=== PATIENT | female | born 1935 | race African-American/Black ===

== ENCOUNTER 2019-04-07 15:43 | Emergency (ER) | payer MEDICARE ==
[~2019-04-07] VITALS: Ht 160 cm; Wt 68.0 kg
--- NOTE | 2019-04-07 16:07 | Emergency Room Report ---
History of Present Illness General Chief Complaint: Generalized Weakness Source: EMS Present Illness HPI Presents with a history of advanced dementia and refusing to eat. She also refused dialysis today. She gets dialysis Wednesdays and Fridays. She is unable to give a history. She cannot even tell me where she was born. She is able to tell me what her name is. She denies pain at this time. Had dialysis Friday. Has had A fib in past. Allergies: Coded Allergies: No Known Allergies (Unverified , 04/07/19) Patient History Limited by: medical condition Past Medical History: see triage record Past Surgical History: other - fistula L forearm Social History Narrative at home with family Reviewed Nursing Documentation: PMH: Agreed; PSxH: Agreed Nursing Documentation-PMH Past Medical History: No History, Except For Hx Dialysis: Yes - M-W-F Hx Neurological Problems: Yes - dementia Review of Systems All Other Systems: limited Physical Exam Vital Signs Date Time Temp Pulse Resp B/P (MAP) Pulse Ox O2 Delivery O2 Flow Rate FiO2 04/07/19 15:43 98.1 86 16 142/70 (94) 97 Room Air Sp02 EP Interpretation: reviewed, normal General Appearance: thin, other - frail, Chronically Ill Eyes: bilateral eye other - arcus ENT: moist mucus membranes Neck: supple Respiratory: lungs clear, normal breath sounds Cardiovascular #1: irregularly irregular, edema - trace Cardiovascular #2: 2+ radial (L) - thrill Gastrointestinal: normal inspection, normal bowel sounds, non tender, soft Genitourinary: no CVA tenderness Musculoskeletal: back normal, digits/nails normal, no calf tenderness Neurologic: alert, motor strength/tone normal, DTRs symmetric, sensory intact, oriented - X1 Psychiatric: depressed affect Skin: other - sallow Medical Decision Making Diagnostic Impression: Primary Impression: Failure to thrive Qualified Codes: R62.7 - Adult failure to thrive Additional Impressions: ESRD (end stage renal disease) on dialysis Elevated troponin ER Course Patient presents with refusal to eat and refusing dialysis. Differential includes failure to thrive, acute myocardial infarction, occult infection, electrolyte abnormality with increased potassium due to lack of dialysis amongst others. Patient will be evaluated with EKG, chest x-ray and labs. The patient is placed on a quality assurance monitor body. Complaining of stomach pain. Mylanta and Pepcid ordered. EKG with atrial fibrillation and PVC. CXR with aortic calcifications and slight atelectasis L. CMP with CRF, potassium normal. + troponin - aspirin ordered. Elevated BNP. No need for acute dialysis but need assessment of refusal of eating and dialysis. Discussed with Dr. Whitman at [facility]. Stable for transfer. Laboratory Tests Test 04/07/19 16:10 White Blood Count 13.9 K/UL (4.8-10.8) H Red Blood Count 5.17 M/UL (4.20-5.40) Hemoglobin 10.1 G/DL (12.0-16.0) L Hematocrit 34.5 % (37.0-47.0) L Mean Corpuscular Volume 67 FL (80-99) L Mean Corpuscular Hemoglobin 19.5 PG (27.0-31.0) L Mean Corpuscular Hemoglobin Concent 29.3 G/DL (32.0-36.0) L Red Cell Distribution Width 21.8 % (11.6-14.8) H Platelet Count 184 K/UL (150-450) Mean Platelet Volume 5.9 FL (6.5-10.1) L Neutrophils (%) (Auto) % (45.0-75.0) Lymphocytes (%) (Auto) % (20.0-45.0) Monocytes (%) (Auto) % (1.0-10.0) Eosinophils (%) (Auto) % (0.0-3.0) Basophils (%) (Auto) % (0.0-2.0) Differential Total Cells Counted 100 Neutrophils % (Manual) 75 % (45-75) Lymphocytes % (Manual) 16 % (20-45) L Monocytes % (Manual) 9 % (1-10) Eosinophils % (Manual) 0 % (0-3) Basophils % (Manual) 0 % (0-2) Band Neutrophils 0 % (0-8) Nucleated Red Blood Cells 1 /100 WBC Platelet Estimate Adequate Platelet Morphology Normal Polychromasia 2+ Hypochromasia 3+ Anisocytosis 3+ Microcytosis 3+ Target Cells 1+ Tear Drop Cells 1+ Prothrombin Time 12.4 SEC (9.30-11.50) H Prothrombin Time INR 1.2 (0.9-1.1) H PTT 28 SEC (23-33) Sodium Level 136 MMOL/L (136-145) Potassium Level 3.9 MMOL/L (3.5-5.1) Chloride Level 99 MMOL/L (98-107) Carbon Dioxide Level 26 MMOL/L (21-32) Anion Gap 11 mmol/L (5-15) Blood Urea Nitrogen 35 mg/dL (7-18) H Creatinine 6.6 MG/DL (0.55-1.30) H Estimate Glomerular Filtration Rate mL/min (>60) Glucose Level 105 MG/DL (74-106) Uric Acid 9.3 MG/DL (2.6-7.2) H Calcium Level 9.3 MG/DL (8.5-10.1) Magnesium Level 2.2 MG/DL (1.8-2.4) Total Bilirubin 1.8 MG/DL (0.2-1.0) H Direct Bilirubin 0.5 MG/DL (0.0-0.3) H Aspartate Amino Transferase (AST) 16 U/L (15-37) Alanine Aminotransferase (ALT) 8 U/L (12-78) L Alkaline Phosphatase 94 U/L (46-116) Total Creatine Kinase 19 U/L (26-308) L Troponin I 0.079 ng/mL (0.000-0.056) Pro-B-Type Natriuretic Peptide 65603 pg/mL (0-125) H Total Protein 7.2 G/DL (6.4-8.2) Albumin 2.8 G/DL (3.4-5.0) L Globulin 4.4 g/dL Albumin/Globulin Ratio 0.6 (1.0-2.7) L Thyroid Stimulating Hormone (TSH) 0.320 uiU/mL (0.358-3.740) Digoxin Level < 0.2 NG/ML (0.9-2.0) L EKG Diagnostic Results Rate: normal Rhythm: other - a fib ST Segments: no acute changes Rhythm Strip Diag. Results EP Interpretation: yes Rhythm: no PVC's, no ectopy, other - a fib Chest X-Ray Diagnostic Results Chest X-Ray Diagnostic Results : Chest X-Ray Ordered: Yes # of Views/Limited/Complete: 1 View Indication: Other EP Interpretation: Yes Interpretation: no pneumothorax, other - atelectasis L and possible effusion , inc cor Impression: Other Electronically Signed by: Electronically signed by Kirit Saha MD Last Vital Signs Date Time Temp Pulse Resp B/P (MAP) Pulse Ox O2 Delivery O2 Flow Rate FiO2 04/07/19 18:09 98.6 88 18 102/66 100 Room Air Status: improved Disposition: XFER SHT-TRM HOSP Condition: Serious Scripts Unable to Obtain Active Prescriptions or Reported Meds Kirit Saha MD Apr 07, 2019 16:07
[2019-04-07 16:23] VITALS: BP 134/70
[2019-04-07 16:30] LABS: HEMATOCRIT 34.5 % (37.0-47.0); HEMOGLOBIN 10.1 G/DL (12.0-16.0); MEAN CORPUSCULAR VOLUME 67 FL (80-99); PLATELET COUNT 184 K/UL (150-450); RED BLOOD COUNT 5.17 M/UL (4.20-5.40); RED CELL DISTRIBUTION WIDTH 21.8 % (11.6-14.8); WHITE BLOOD COUNT 13.9 K/UL (4.8-10.8)
[2019-04-07 16:40] LABS: ANION GAP 11 mmol/L (5-15); BLOOD UREA NITROGEN 35 mg/dL (7-18); CALCIUM 9.3 MG/DL (8.5-10.1); CARBON DIOXIDE 26 MMOL/L (21-32); CHLORIDE 99 MMOL/L (98-107); CREATININE 6.6 MG/DL (0.55-1.30); INR 1.2 (0.9-1.1); POTASSIUM 3.9 MMOL/L (3.5-5.1); SODIUM 136 MMOL/L (136-145)
--- NOTE | 2019-04-07 16:41 | Diagnostic Imaging Report ---
Indication: Shortness of breath Technique: One view of the chest Comparison: none Findings: Lungs are clear except for mild interstitial prominence which is probably on the basis of senescent changes. The right costophrenic angle is blunted. Heart size is borderline enlarged. The aorta is tortuous ectatic and calcified. Impression: Right costophrenic angle blunting, could indicate a small right pleural effusion. Borderline cardiomegaly
[2019-04-07 16:56] LABS: ALANINE AMINOTRANSFERASE 8 U/L (12-78); ALBUMIN 2.8 G/DL (3.4-5.0); ALBUMIN/GLOBULIN RATIO 0.6 (1.0-2.7); ALKALINE PHOSPHATASE 94 U/L (46-116); ASPARTATE AMINO TRANSFERASE 16 U/L (15-37); BILIRUBIN,TOTAL 1.8 MG/DL (0.2-1.0); CREATINE KINASE 19 U/L (26-308)
[2019-04-07 16:57] LABS: BILIRUBIN,DIRECT 0.5 MG/DL (0.0-0.3)
[2019-04-07] MEDS ORDERED: Mylanta II UD 30ml ORAL ONE (17:15)
[2019-04-07 17:48] VITALS: BP 102/66
[2019-04-07 18:09] VITALS: BP 102/66
== END 2019-04-07 18:35 | disposition short-term general hospital (02) ==
LOC: EDBD 15:43 → EMR 17:00
DX: R62.7 Adult failure to thrive (principal); N18.6 End stage renal disease; Z99.2 Dependence on renal dialysis; F03.90 Unspecified dementia, unspecified severity, without behavioral disturbance, psychotic disturbance, mood disturbance, and anxiety; R79.89 Other specified abnormal findings of blood chemistry; I48.91 Unspecified atrial fibrillation
CPT/HCPCS: 36415; 71045; 80053; 80162; 82248; 82550; 83735; 83880; 84443; 84484; 84550; 85007; 85025; 85610; 85730; 93005; 96374; 99284; S0028